=== PATIENT | female | born 1935 | race Caucasian/White ===

== ENCOUNTER 2019-01-10 14:40 | Inpatient (IN) ==
[2019-01-10] MEDS ORDERED: SODIUM CHLORIDE 0.9% 500 ML IV STA (18:21)
[2019-01-10 19:03] LABS: Basophils % 0.3 % (0.0-0.8); Eosinophils # 0.1 10*3/uL (0.0-0.87); Eosinophils % 2.7 % (0.00-10.9); Hematocrit 38.2 VOL% (35.7-47.0); Hemoglobin 12.4 GM/DL (12.0-16.0); Immature Granulocytes Absolute 0.03 #; Lymphocytes # 0.7 10*3/uL (1.4-4.0); Lymphocytes % 24.3 % (21.3-54.2); Mean Corpuscular HGB Conc 32.5 GM/DL (32-36); Mean Platelet Volume 9.3 FL (9.6-12.0); Monocytes % 1.3 % (1.7-12.7); Neutrophils % 70.4 % (38.7-73.9); Platelet Count 169 T/CUMM (130-400); Red Blood Count 4.15 MC/CUMM (3.8-5.5); Red Cell Distribution Width 14.6 % (9.3-17.3)
[2019-01-10 19:08] LABS: Apearance,Urine CLEAR (Clear); Bacteria,Urine Occasional /HPF (Few); Bilirubin,Urine Negative (Negative); Blood, Urine Negative (Negative); Glucose,Urine (UA) Negative (Negative); Hyaline Casts,Urine 13 /LPF (0-3); Ketones,Urine Negative (Negative); Mucus,Urine Occasional /LPF (Occasional); Nitrite,Urine Negative (Negative); Protein,Urine Negative; RBC,Urine 10 /HPF (0-4); Squamous Epithelial Cell,Urine Occasional /HPF (0-10); Urine Color Amber (Yellow); Urine Specific Gravity 1.027 (1.001-1.035); Urine Urobilinogen < 2.0 EU/DL (0.2-1.0); WBC,Urine 6 /HPF (0-6)
[2019-01-10 19:13] LABS: INR 0.9; PT Patient Result 10.3 SECS (9.6-12.2)
[2019-01-10 19:32] LABS: Albumin 3.6 G/DL (3.4-5.0); Bilirubin,Total 0.9 MG/DL (0.2-1.0); Calcium 10.6 MG/DL (8.5-10.1); Osmolality,Calculated 265.7 MOS/KG (273-304); Thyroid Stimulating Hormone 0.65 uIU/ml (0.358-3.74); Total Protein 8.1 G/DL (6.4-8.3)
[2019-01-10] MEDS ORDERED: diphenhydrAMINE 50 MG/1 ML VIAL IV STA (21:22)
[2019-01-10] MEDS ORDERED: methylPREDNISolone SOD SUC 125 MG/2 ML VIAL IV STA (21:22)
[2019-01-10] MEDS ORDERED: ONDANSETRON 4 MG/2 ML VIAL IV PRN (21:40)
[2019-01-10] MEDS ORDERED: SODIUM CHLORIDE 0.9% 1,000 ML IV SCH (22:00)
[2019-01-11] MEDS: FAMOTIDINE 20 MG/2 ML VIAL IV SCH ×2 (00:15→13:14)
[2019-01-11 04:49] LABS: Hematocrit 29.4 VOL% (35.7-47.0); Hemoglobin 9.6 GM/DL (12.0-16.0); Immature Granulocytes % 1.1 %; Immature Granulocytes Absolute 0.02 #; Lymphocytes # 0.3 10*3/uL (1.4-4.0); Lymphocytes % 13.2 % (21.3-54.2); Mean Corpuscular HGB Conc 32.7 GM/DL (32-36); Mean Corpuscular Volume 92.5 FL (87-102); Mean Platelet Volume 9.6 FL (9.6-12.0); Monocytes % 1.6 % (1.7-12.7); Neutrophils % 84.1 % (38.7-73.9); Platelet Count 140 T/CUMM (130-400); Red Blood Count 3.18 MC/CUMM (3.8-5.5); Red Cell Distribution Width 14.6 % (9.3-17.3); White Blood Count 1.9 T/CUMM (4-12)
[2019-01-11 05:11] LABS: Lymphocytes 12 % (20-55); Nucleated Red Blood Cells 1 (0-5); Segmented Neutrophils 88 % (50-85); Total Cells Counted 100
[2019-01-11 05:12] LABS: Hypochromasia 1+; Platelet Estimate Adequate
[2019-01-11 05:16] LABS: Osmolality,Calculated 273.1 MOS/KG (273-304)
[2019-01-11] MEDS ORDERED: ENOXAPARIN 30 MG/0.3 ML SYRINGE SUBCUT SCH (09:00)
[2019-01-11] MEDS: LORATADINE 10 MG TABLET PO SCH (09:07)
[2019-01-11] MEDS: FOLIC ACID 1 MG TABLET PO SCH (09:07)
[2019-01-11] MEDS: predniSONE 5 MG TABLET PO SCH (09:07)
[2019-01-12] MEDS: FAMOTIDINE 20 MG/2 ML VIAL IV SCH ×2 (00:57→12:06)
[2019-01-12 04:47] LABS: Hematocrit 26.1 VOL% (35.7-47.0); Hemoglobin 8.4 GM/DL (12.0-16.0); Immature Granulocytes % 1.5 %; Immature Granulocytes Absolute 0.03 #; Lymphocytes # 0.6 10*3/uL (1.4-4.0); Lymphocytes % 29.6 % (21.3-54.2); Mean Corpuscular HGB Conc 32.2 GM/DL (32-36); Mean Corpuscular Volume 93.2 FL (87-102); Mean Platelet Volume 9.3 FL (9.6-12.0); Monocytes % 1.5 % (1.7-12.7); Neutrophils % 66.4 % (38.7-73.9); Platelet Count 95 T/CUMM (130-400); Red Cell Distribution Width 14.9 % (9.3-17.3)
[2019-01-12 05:12] LABS: Albumin 2.5 G/DL (3.4-5.0); Bilirubin,Total 0.7 MG/DL (0.2-1.0); Calcium 8.8 MG/DL (8.5-10.1); Eosinophils 1 % (0-10); Hypochromasia 1+; Lymphocytes 28 % (20-55); Osmolality,Calculated 281.4 MOS/KG (273-304); Platelet Estimate Decreased; Segmented Neutrophils 71 % (50-85); Total Cells Counted 100; Total Protein 5.6 G/DL (6.4-8.3)
[2019-01-12] MEDS ORDERED: SODIUM CHLORIDE 0.9% IV ONE (06:35)
[2019-01-12] MEDS ORDERED: POTASSIUM CHLORIDE IV ONE (06:35)
[2019-01-12] MEDS ORDERED: LACTATED RINGERS 1,000 ML IV SCH (08:00)
[2019-01-12] MEDS ORDERED: PROPOFOL 200 MG/20 ML VIAL IV ONE (08:04)
[2019-01-12] MEDS ORDERED: LIDOCAINE 100 MG/5 ML SYRINGE ONE (08:04)
[2019-01-12] MEDS ORDERED: MAGNESIUM SULF RIDER 2 GM in PREMIX 1 EACH IV PRN (08:41)
[2019-01-12] MEDS ORDERED: POTASSIUM CHLORIDE RIDER 10 MEQ in PREMIX 1 EACH IV PRN (08:41)
[2019-01-12] MEDS ORDERED: MAGNESIUM SULF RIDER 4 GM in PREMIX 1 EACH IV PRN (08:41)
[2019-01-12] MEDS ORDERED: POTASSIUM PHOSPHATE 30 MMOL in SODIUM CHLORIDE 0.9% 250 ML IV ONE (09:00)
[2019-01-12] MEDS ORDERED: FOLIC ACID 1 MG TABLET PO SCH (09:07)
[2019-01-12] MEDS: LORATADINE 10 MG TABLET PO SCH (12:05)
[2019-01-12] MEDS: predniSONE 5 MG TABLET PO SCH (12:05)
[2019-01-12] MEDS: FOLIC ACID 1 MG TABLET PO SCH (12:08)
[2019-01-12 12:43] VITALS: BP 118/60
== END 2019-01-12 15:31 | disposition home or self-care (01) | DRG 916 ==
LOC: N.ED 14:40 → N.EDINP 21:40 → SUATTDRO 21:40 → N.3E 22:32
PROVIDERS: ADMIT Internal Medicine